=== PATIENT | female | born 1950 | race African-American/Black ===

== ENCOUNTER 2020-07-09 12:51 | Emergency (ER) | payer MEDICARE, SELFPAY ==
--- NOTE | ~2020-07-09 | XR_ITS ---
EXAMINATION: XR chest 2V DATE: 07/09/2020 13:30 INDICATION: Chest pain. Shortness of breath. TECHNIQUE: Frontal and lateral views of the chest were obtained. COMPARISON: None. FINDINGS: There is mild atelectasis at left lung base. No pleural effusion or pneumothorax. Cardiomeg ru is noted. IMPRESSION: 1. Mild atelectasis at left lung base. 2. Cardiomegaly. Reviewed, dictated and finalized at location A.
--- NOTE | ~2020-07-09 | NM_ITS ---
EXAMINATION: NM pulmonary perfusion EXAM DATE: 07/09/2020 16:50 INDICATION: Shortness of breath. TECHNIQUE: A perfusion lung scan was performed. The patient was injected with 5.1 mCi technetium 99m MAA and imaged. Modified PIOPED 2 criteria used for interpretation of perfusion without ventilation study (recent chest x-ray instead for comparison). Correlation is made to chest x-ray same date. FINDINGS: There is homogeneous perfusion throughout the lungs, without segmental defects on either si de. IMPRESSION: Normal perfusion scan. Reviewed, dictated and finalized at location A. IMPRESSION: Normal perfusion scan.
--- NOTE | 2020-07-09 12:52 | ECG_ITS ---
Measurements Intervals Bryant Rate: 77 P: 51 MO: 125 QRS: 49 QRSD: 93 T: 49 QT: 382 QTc: 433 Interpretive Statements SINUS RHYTHM BASELINE ARTIFACT- I, II, III, AVR, AVL, AVF, V1-V6 NORMAL ECG Electronically Signed On 07-09-2020 13:06:36 CDT by Clark Simpson D.O.
[2020-07-09 12:54] VITALS: BP 130/114; PULSE 83; RESP 15; TEMP 36.8; O2SAT 100
[2020-07-09 12:58] VITALS: PULSE 78
[2020-07-09] MEDS: ASPIRIN 81 MG CHEWABLE TABLET 324 MG PO (13:04)
--- NOTE | 2020-07-09 13:23 | PC.NURSE ---
IV attempt x3 unsuccessful at this time. Another RN will attempt to get IV and blood draw after patient returns from x-ray
--- NOTE | 2020-07-09 13:28 | ED.CHESTPAIN ---
HPI - Chest Pain General Chief Complaint: Chest Pain Stated Complaint: cp Time Seen by Provider: 07/09/20 12:53 Source: patient Mode of arrival: ambulatory Limitations: no limitations History of Present Illness HPI narrative: Patient is a 69-year-old female who presents with pleuritic chest pain that has been going on for weeks patient was admitted an outside hospital for this at evaluation was discharged patient notes that she saw primary care Thursday for this and that they have been evaluating her for the discomfort she gets when breathing and coughing. Patient denies acute illness such as fever chills URI symptoms diarrhea vomiting. Patient denies any current dyspnea. Patient notes that she has also had increasing swelling to the bilateral lower extremities and her doctor gave her a medicine for this which she has not filled yet. On arrival patient resting comfortably in the room in no distress and does not appear uncomfortable and currently does not have any pain Related Data Home Medications Medication Instructions Recorded Confirmed carvedilol 25 mg PO BID 07/09/20 07/09/20 Allergies Allergy/AdvReac Type Severity Reaction Status Date / Time No Known Allergies Allergy Unverified 11/01/19 15:33 Review of Systems Review of Systems: All systems reviewed & are unremarkable except as noted in HPI and below PMFSH Past Medical History Medical History (Updated 07/09/20 @ 13:30 by Pardeep Flynn PA-C) Hypertension Obesity Social History Social History (Updated 07/09/20 @ 13:30 by Pardeep Flynn PA-C) Smoking status: Never smoker Exam Narrative: Exam Narrative: GENERAL: Well-appearing, obese, and in no acute distress. HEAD: Normocephalic, atraumatic. EYES: PERRLA and EOMI. ENT: Nares clear, no rhinorrhea or epistaxis. Mucous membranes moist. Oropharynx without tonsillar hypertrophy exudate or other lesions. NECK: Supple. No adenopathy or masses. No carotid bruits or JVD CHEST: Clear to auscultation. No respiratory distress. No wheezes rales or rhonchi HEART: Regular rate and rhythm. No murmur heard. Normal peripheral pulses. ABDOMEN: Soft, nontender, nondistended EXTREMITIES: Normal range of motion. 4+ edema to the bilateral lower extremities SKIN: Warm, dry, no rash. NEURO: No focal deficits. Alert and oriented x3. PSYCH: Normal mood and affect. Course Vital Signs Vital signs: Vital Signs Temperature 98.3 F 07/09/20 12:54 Pulse Rate 83 07/09/20 12:54 Respiratory Rate 15 07/09/20 12:54 Blood Pressure 130/114 H 07/09/20 12:54 Pulse Oximetry 100 07/09/20 12:54 Temperature 98.3 F 07/09/20 12:54 Pulse Rate 78 07/09/20 12:58 Respiratory Rate 15 07/09/20 12:54 Blood Pressure 130/114 H 07/09/20 12:54 Pulse Oximetry 100 07/09/20 12:54 MDM - Chest Pain ECG Data EKG #1: ECG completion date: 07/09/20 ECG completion time: 13:00 EKG Interpretation: normal rate, sinus rhythm, non-specific ST changes, normal QRS and NL axis Discharge Plan Discharge Prescriptions: No Action carvedilol 25 mg Tablet 25 mg PO BID RF: 0
--- NOTE | 2020-07-09 13:32 | ED.CHESTPAIN ---
HPI - Chest Pain General Chief Complaint: Chest Pain Stated Complaint: cp Time Seen by Provider: 07/09/20 12:53 Source: patient Mode of arrival: ambulatory Limitations: no limitations History of Present Illness HPI narrative: Patient is a 69-year-old female who presents to emergency department for evaluation of pleuritic chest discomfort that has been present now for over a month has had a hospital admission in the last several weeks for this was discharged home followed up this Thursday with primary care who may have started the patient on a diuretic pill but she has not filled it. Patient notes she gets aching pain intermittently with breathing and coughing but denies other URI symptoms or acute illness and on arrival is denying any pain and resting comfortably in the room in no distress Related Data Home Medications Medication Instructions Recorded Confirmed carvedilol 25 mg PO BID 07/09/20 07/09/20 Allergies Allergy/AdvReac Type Severity Reaction Status Date / Time No Known Allergies Allergy Unverified 11/01/19 15:33 Review of Systems Review of Systems: All systems reviewed & are unremarkable except as noted in HPI and below PMFSH Past Medical History Medical History Hypertension Obesity Social History Social History Smoking status: Never smoker Exam Narrative: Exam Narrative: GENERAL: Well-appearing, obese, and in no acute distress. HEAD: Normocephalic, atraumatic. EYES: PERRLA and EOMI. ENT: Nares clear, no rhinorrhea or epistaxis. Mucous membranes moist. Oropharynx without tonsillar hypertrophy exudate or other lesions. NECK: Supple. No adenopathy or masses. No carotid bruits or JVD CHEST: Clear to auscultation. No respiratory distress. No wheezes rales or rhonchi HEART: Regular rate and rhythm. No murmur heard. Normal peripheral pulses. ABDOMEN: Soft, nontender, nondistended EXTREMITIES: Normal range of motion. 4+ edema to the bilateral lower extremities SKIN: Warm, dry, no rash. NEURO: No focal deficits. Alert and oriented x3. Cranial nerves II through XII grossly intact. Neurovascularly intact PSYCH: Normal mood and affect. Course Course Emergency Course: Patient in the room at this time in no distress aware of case findings treatment plan and diagnosis agreeing to follow-up with primary care patient was evaluated and is felt appropriate for outpatient reevaluation given her multiple complaints will be given Lasix one-time dose in the emergency department and will follow clinically with primary care patient is also aware discussion with primary care and the recommendation Consultations Consultation #1: Discussed case with primary care who will follow patient in clinic Date: 07/09/20 Time: 17:19 Vital Signs Vital signs: Vital Signs Temperature 98.3 F 07/09/20 12:54 Pulse Rate 83 07/09/20 12:54 Respiratory Rate 15 07/09/20 12:54 Blood Pressure 130/114 H 07/09/20 12:54 Pulse Oximetry 100 07/09/20 12:54 Temperature 98.3 F 07/09/20 12:54 Pulse Rate 75 07/09/20 16:07 Respiratory Rate 18 07/09/20 16:07 Blood Pressure 179/93 H 07/09/20 16:07 Pulse Oximetry 98 07/09/20 16:07 MDM - Chest Pain MDM Narrative Medical decision making narrative: Patient in the room at this time in no distress no high risk changes in the blood work or imaging felt appropriate for outpatient reevaluation patient will be given a diuretic in the emergency department prior to discharge per dependent edema felt appropriate for clinic follow-up. Patient will also be treated for constipation as requested by the patient Lab Data Result diagrams: 07/09/20 13:47 07/09/20 13:47 Labs: Lab Results 07/09/20 07/09/20 07/09/20 Range/Units 13:47 13:47 13:47 WBC 9.6 (4.5-10.0) K/mm3 RBC 3.42 L (4.2-5.4) M/mm3 Hgb 9.8 L (12.0-15.0) g/dL
[2020-07-09 13:56] LABS: Basophils Absolute Auto 0.1 K/mm3 (0.0-0.1); Eosinophils Absolute Auto 1.5 K/mm3 (0-0.3); Eosinophils Percent Auto 15.6 % (0-4.4); Hematocrit 32.4 % (37.0-47.0); Hemoglobin 9.8 g/dL (12.0-15.0); Immature Granulocyte Absolute 0.08 K/mm3 (0.00-0.031); Immature Granulocyte Percent A 0.8 % (0-0.5); Lymphocytes Absolute Auto 3.23 K/mm3 (0.9-3.2); Lymphocytes Percent Auto 33.6 % (18.3-44.2); Mean Corpuscular HGB Conc 30.2 g/dl (32-36); Mean Corpuscular Hemoglobin 28.7 pg (26-34); Mean Corpuscular Volume 94.7 fl (80-100); Mean Platelet Volume 11.3 fl (7.4-10.4); Monocytes Absolute Auto 1.1 K/mm3 (0.1-0.6); Monocytes Percent Auto 11.6 % (2.6-8.5); Neutrophils Absolute Auto 3.6 K/mm3 (1.3-6.7); Neutrophils Percent Auto 37.4 % (45.5-73.1); Nucleated Red Blood Cells Absolute Auto 0.1 K/mm3 (0.0-0.012); Platelet Count Result 370 k/mm3 (150-375); Red Blood Count 3.42 M/mm3 (4.2-5.4); Red Cell Distribution Width 19.2 % (11.5-14.5); White Blood Count 9.6 K/mm3 (4.5-10.0)
[2020-07-09 14:10] LABS: Anion Gap 3 mmol/L (8-16); Blood Urea Nitrogen 15 mg/dL (7-17); Calcium 8.7 mg/dL (8.4-10.2); Carbon Dioxide 29 mmol/L (22-30); Chloride 115 mmol/L (98-107); Estimated CRCL calculation 71 ml/min; Estimated Glomerular Filt Rate > 60; Glucose 112 mg/dL (65-105); Sodium 147 mmol/L (137-145)
[2020-07-09 14:16] LABS: NT Pro B Type Natriuretic Pept 973 PG/ML (5-100)
[2020-07-09 14:19] LABS: Hypochromasia 1+ (NORMAL); Platelet Estimate Adequate (Adequate)
[2020-07-09 14:20] LABS: Ovalocytes 1+ (NORMAL)
[2020-07-09 14:22] LABS: Troponin I < 0.012 ng/mL (0.000-0.034)
[2020-07-09 14:39] LABS: INR 1.1; Prothrombin Time 13.7 Seconds (11.1-14.7)
[2020-07-09 14:45] VITALS: BP 194/86; PULSE 71; RESP 14; O2SAT 100
[2020-07-09 16:07] VITALS: BP 179/93; PULSE 75; RESP 18; O2SAT 98
[2020-07-09 16:52] LABS: Troponin I < 0.012 ng/mL (0.000-0.034)
[2020-07-09 17:20] VITALS: BP 153/83; PULSE 74; RESP 17; O2SAT 100
[2020-07-09] MEDS: FUROSEMIDE INJ 40 MG/4 ML VIAL IV PUSH (17:20)
--- NOTE | 2020-07-09 17:38 | PC.NURSE ---
Patient's daughter called to give patient a ride [place] [phone]
[2020-07-09 17:45] VITALS: BP 133/68; PULSE 73; RESP 18; O2SAT 100
== END 2020-07-09 17:46 | disposition home or self-care (01) ==
PROVIDERS: Emergency Medicine Emergency Medical Services; Emergency Provider Emergency Medicine; PCP Internal Medicine
DX: R07.89 Other chest pain (principal); I10 Essential (primary) hypertension; E66.9 Obesity, unspecified; Z68.41 Body mass index [BMI] 40.0-44.9, adult; I51.7 Cardiomegaly; R91.8 Other nonspecific abnormal finding of lung field
CPT/HCPCS: 36415; 71046; 78580; 80048; 83880; 84484; 85025; 85380; 85610; 85730; 93005; 96374; 99284; A9270; A9540; J1940

== ENCOUNTER 2023-10-08 00:39 | Day surgery (SDC) | payer MEDICARE, SELFPAY ==
[2023-09-07 12:05] VITALS: BMI 43.4
--- NOTE | 2023-09-07 12:12 | PC.NURSE ---
Report to the Outpatient Waiting Room, entrance under the green pavilion located off [facility], at time __1000 on date _09/10/23__. Planned Procedure Time: __1200 . Time changes happen often and if your time is changed the preop area will call you the afternoon before. - You and your visitor will be asked to self-screen and do not enter if you have any COVID symptoms. - A mask is optional within the hospital at this time. Patients may have clear liquids (water, carbonated beverages, clear teas, apple juice) until 3 hours prior to surgery (0900 AM) with a maximum of 20 ounces. - No food from midnight until time of surgery - Infants may have breast milk until 4 hours before surgery, infant formula 6 hours prior to surgery. - Children will be allowed to drink immediately following surgery. If applicable, please bring a bottle or sippy cup to assist with drinking. Juice, water, soda, and popsicles are readily available. For infants on formula, please bring formula the day of surgery. Pacifiers are allowed. Take the following medications with a SIP of water the morning of surgery: __AMLODIPINE, CARVEDILOL DO NOT STOP ANY OF YOUR OTHER PRESCRIPTION MEDICATIONS PRIOR TO SURGERY ?EXCEPT THE FOLLOWING Medications to discontinue per physician N/A Date to take last dose Please no make-up, nail kazakh, hairspray, perfume, deodorant, or body powder the day of surgery. No jewelry (including any body piercings) or valuables the day of surgery, leave them at home. Please take a shower or bath the night before, or the morning of, surgery with an antibacterial soap. Wear comfortable, loose fitting clothing. Children are encouraged to wear pajamas. - Jewelry must be removed prior to entering the operating room. Rings and piercings that are not removed may be cut off. - The hospital will not accept responsibility for valuables. - Please leave all valuables, including medications, at home the day of surgery. If you are going home after surgery, a licensed driver lifter of sanitation truck must drive you home. - NO public transportation without another adult if you receive anesthesia. - We recommend that an adult stay with you for 24 hours following discharge. - We also recommend that you do not drive, make important decision, drink alcoholic beverages, or take any drugs that were not prescribed by your health care provider for at least 24 hours after your discharge time. For Pediatric surgeries, we recommend two adults accompany the child home. Follow any additional instructions given to you from your surgeon. If you or anyone in your household have experienced Covid symptoms in the past week, please notify your surgeon or the nurse liaison at the phone number below for possible testing. Telephone instructions given to ____PT and asked if any additional questions and then verbalized understanding. Patient advised to call surgeon office or pre surgery nurse liaison [phone] if any additional questions.
[2023-10-01 11:58] VITALS: BMI 43.4
--- NOTE | 2023-10-01 12:01 | PC.NURSE ---
Report to the Outpatient Waiting Room, entrance under the green pavilion located off [facility], at time __1000 on date __10/08/23 . Planned Procedure Time: ____1200____. Time changes happen often and if your time is changed the preop area will call you the afternoon before. - You and your visitor will be asked to self-screen and do not enter if you have any COVID symptoms. - A mask is optional within the hospital at this time. Patients may have clear liquids (water, carbonated beverages, clear teas, apple juice) until 3 hours prior to surgery (0900 AM) with a maximum of 20 ounces. - No food from midnight until time of surgery - Infants may have breast milk until 4 hours before surgery, formula 6 hours prior to surgery. - Children will be allowed to drink immediately following surgery. If applicable, please bring a bottle or sippy cup to assist with drinking. Juice, water, soda, and popsicles are readily available. For infants on formula, please bring formula the day of surgery. Pacifiers are allowed. Take the following medications with a SIP of water the morning of surgery: _AMLODIPINE, CARVEDILOL_ DO NOT STOP ANY OF YOUR OTHER PRESCRIPTION MEDICATIONS PRIOR TO SURGERY ?EXCEPT THE FOLLOWING Medications to discontinue per physician NONE Date to take last dose Please no make-up, nail icelandic, hairspray, perfume, deodorant, or body powder the day of surgery. No jewelry (including any body piercings) or valuables the day of surgery, leave them at home. Please take a shower or bath the night before, or the morning of, surgery with an antibacterial soap. Wear comfortable, loose fitting clothing. Children are encouraged to wear pajamas. - Jewelry must be removed prior to entering the operating room. Rings and piercings that are not removed may be cut off. - The hospital will not accept responsibility for valuables. - Please leave all valuables, including medications, at home the day of surgery. If you are going home after surgery, a licensed trencher driver must drive you home. - NO public transportation without another adult if you receive anesthesia. - We recommend that an adult stay with you for 24 hours following discharge. - We also recommend that you do not drive, make important decision, drink alcoholic beverages, or take any drugs that were not prescribed by your health care provider for at least 24 hours after your discharge time. For Pediatric surgeries, we recommend two adults accompany the child home. Follow any additional instructions given to you from your surgeon. If you or anyone in your household have experienced Covid symptoms in the past week, please notify your surgeon or the nurse liaison at the phone number below for possible testing. Telephone instructions given to ___PT and asked if any additional questions and then verbalized understanding. Patient advised to call surgeon office or pre surgery nurse liaison [phone] if any additional questions.
--- NOTE | 2023-10-08 07:34 | PM.IMHP ---
H&P: HPI History of Present Illness Date/Time: 10/08/23 07:34 Chief Complaint: postmenopausal bleeding Thickened endometrium on ultrasound Narrative: 72-year-old female who presents for hysteroscopy D&C for postmenopausal bleeding. Patient initially presented to the office after an episode of light postmenopausal bleeding. Pelvic ultrasound showed a thickened endometrium. Patient has had 2 prior D&Cs for the same complaint. Review of Systems Cardiovascular: Cardiovascular: Denies chest pain, Denies leg edema, Denies palpitations, Denies dyspnea and Denies dyspnea on exertion Respiratory: Respiratory: Denies cough, Denies dyspnea and Denies dyspnea on exertion Gastrointestinal: Gastrointestinal: Denies abdominal pain, Denies constipation, Denies diarrhea, Denies nausea and Denies vomiting Genitourinary: Genitourinary: Denies hematuria, Denies urinary frequency, Denies dysuria, Denies pelvic pain, Denies urinary incontinence and Denies vaginal discharge Neurologic: Reports system reviewed and no additional complaints, except as documented Psychiatric: Psychiatric: Reports no additional psychiatric complaints Endocrine: Endocrine: Denies palpitations PMFSH Past Medical History Medical History Cataract Colon cancer (~1994) High cholesterol History of hypertension Hypertension Incontinence had botox injections Obesity Osteoarthritis Surgical History Surgical History History of hysteroscopy (08/04/19) hscope D&C post menopausal bleeding Benign History of hysteroscopy (12/18/17) Hysteroscopy D&C with polypectomy/ PMB; endometrial polyp Family History Family History Mother Hypertension Diabetes mellitus Kidney disease Social History Social History Smoking status: Never smoker Second hand tobacco smoke exposure: No Alcohol intake: never Substance use: never Substance use type: does not use Living arrangements: with family Occupation/Education: retired Gender identity (if verbalized by the patient): Female Sexual Orientation (if Verbalized by the Patient): Straight or Heterosexual Spiritual care concerns: No Meds Home Medications and Allergies Home Medications Medication Instructions Recorded Confirmed Type carvedilol 25 mg tablet 25 mg PO BID 07/09/20 10/01/23 History amlodipine 5 mg tablet 5 mg PO DAILY 07/22/23 10/01/23 History atorvastatin 10 mg tablet 10 mg PO DAILY 07/22/23 10/01/23 History calcitriol 0.25 mcg capsule 0.25 mcg PO DAILY 07/22/23 10/01/23 History ergocalciferol (vitamin D2) 1,250 50,000 unit PO DAILY 07/22/23 10/01/23 History mcg (50,000 unit) capsule losartan 25 mg tablet 25 mg PO DAILY 07/22/23 10/01/23 History Allergies Allergy/AdvReac Type Severity Reaction Status Date / Time allopurinol Allergy Mild Hives Verified 10/01/23 12:00 Exam Const: General: no acute distress Eyes: EOM: EOMs intact bilaterally Neck: Neck: supple Thyroid: thyroid normal Chest: Breast/axilla inspection: normal inspection of the breasts Breast/axilla palpation: normal palpation of the breasts, normal palpation of the axillae and no axillary lymphadenopathy Resp: Effort & Inspection: normal respiratory effort Auscultation: clear to auscultation bilaterally Cardio: Rate: regular rate Rhythm: regular rhythm GI: Inspection: non-distended GI Palp: Yes Soft to palpation, No Tenderness to palpation present (GI) and No Guarding due to palpation present (GI) Auscultation: normal bowel sounds : General: No bladder normal to palpation External Female Exam: normal external appearance Speculum Exam - Vagina: normal vaginal discharge and No vaginal bleeding Speculum Exam - Cervix: nontender Bimanual exam- vagina & uterus: No bladder normal to palpati
--- NOTE | 2023-10-08 07:36 | WPDHPUPDATE1 ---
History and Physical Update Update Date/Time: 10/08/23 07:36 History and Physical has been reviewed, including an updated exam of the patient. There are NO changes in the patient's condition. Risks, benefits, and alternatives have been discussed and questions answered. Patient agrees to proceed with procedure.
[2023-10-08 10:23] VITALS: BP 177/84; PULSE 70; RESP 20; TEMP 36.6; O2SAT 100
[2023-10-08] MEDS: ACETAMINOPHEN 500 MG TABLET 1000 MG PO (10:24)
[2023-10-08] MEDS: LACTATED RINGERS 1,000 ML 30 ML IV CONT (10:40)
[2023-10-08 10:49] LABS: Hematocrit 41.7 % (37.0-47.0); Hemoglobin 13.1 g/dL (12.0-15.0)
--- NOTE | 2023-10-08 11:36 | WPDANESEPPF ---
Anes - Initial Pre Proc Eval Procedure: Operation Date: 10/08/23 12:00 Proposed Procedures p Hysteroscopy Dilation and Curettage - Alfred Poe MD Date/Time: 10/08/23 11:36 Surgeon: Alfred Poe MD Pre Op Diagnosis: Post Menopausal Bleeding Patient Data Age: 72 Gender: F Height: 1.6 m Weight: 111.1 kg Last Vital Signs Temp 36.6 C 10/08/23 10:23 Pulse 70 10/08/23 10:23 Resp 20 10/08/23 10:23 BP 177/84 H 10/08/23 10:23 Pulse Ox 100 10/08/23 10:23 O2 Del Method Room Air 10/08/23 10:23 Allergies Allergy/AdvReac Type Severity Reaction Status Date / Time allopurinol Allergy Mild Hives Verified 10/08/23 10:20 Home Medications Medication Instructions Recorded Confirmed Type carvedilol 25 mg tablet 25 mg PO BID 07/09/20 10/08/23 History amlodipine 5 mg tablet 5 mg PO DAILY 07/22/23 10/08/23 History atorvastatin 10 mg tablet 10 mg PO DAILY 07/22/23 10/08/23 History calcitriol 0.25 mcg capsule 0.25 mcg PO DAILY 07/22/23 10/08/23 History ergocalciferol (vitamin D2) 1,250 50,000 unit PO DAILY 07/22/23 10/01/23 History mcg (50,000 unit) capsule losartan 25 mg tablet 25 mg PO DAILY 07/22/23 10/08/23 History Laboratory Tests 10/08/23 10:34 Hgb 13.1 D g/dL (12.0-15.0) Hct 41.7 % (37.0-47.0) Patient hx anesthesia problems: none Family hx anesthesia problems: none Results Review: All pre-operative results and documents have been reviewed as part of the pre-operative evaluation. [facility] Past Medical History Medical History Cataract Colon cancer (~1994) High cholesterol History of hypertension Hypertension Incontinence had botox injections Obesity Osteoarthritis Surgical History Surgical History History of hysteroscopy (08/04/19) hscope D&C post menopausal bleeding Benign History of hysteroscopy (12/18/17) Hysteroscopy D&C with polypectomy/ PMB; endometrial polyp Family History Family History Mother Hypertension Diabetes mellitus Kidney disease Social History Social History Smoking status: Never smoker Second hand tobacco smoke exposure: No Alcohol intake: never Substance use: never Substance use type: does not use Living arrangements: with family Occupation/Education: retired Gender identity (if verbalized by the patient): Female Sexual Orientation (if Verbalized by the Patient): Straight or Heterosexual Spiritual care concerns: No Anes - Eval Final PreProcedure Day of Procedure 10/08/23 11:36 Patient weight: morbidly obese Heart: regular rate and rhythm Lungs: clear to auscultation Airway: Mallampati scale class II Neurological: alert and oriented Last oral intake: >/= 8 hours ASA classification: III Emergent: no Anesthetic plan: proceed Anesthesia type and monitoring: general GIVS and LMA and standard monitoring Results Review: All pre-operative results and documents have been reviewed as part of the pre-operative evaluation. Informed Consent: The patient's anesthetic plan and its attendant risks and benefits were discussed with the patient/family/POA. Questions were solicited and answers provided to the satisfaction of the patient/family/POA.
--- NOTE | 2023-10-08 12:36 | W.PM.PROC2 ---
Procedure Note - Detailed Date of Procedure 10/08/23 Pre-op Diagnosis Post Menopausal Bleeding Post-op Diagnosis Same Procedure Performed hysteroscopy dilation & curettage Surgeon Alfred Poe MD Anesthesia General Indications postmenopausal bleeding thickened endometrium on ultrasound Findings complete survey of endometrial cavity unsuccessful due to depth of vaginal vault and limit of instrument reach. Endometrial lining appeared globally thickened. Tubal ostia not visualized. Description of Procedure Kely Mayer presents for the above procedure for SMASH PIECER. She was counseled as to the indications, risks, benefits, and alternatives to surgery, with the risks including bleeding, infection, damage to surrounding organs, VTE, and complications of anesthesia. Her verbal and written consent was obtained. PROCEDURE: The patient was taken to the OR and general anesthesia induced. She was prepped and draped in Manuelito stirrups with support of the back and bilateral lower extremities. I/O catheterization performed of the bladder. A bi-valve speculum was placed but the cervix was unable to be visualized. A long matthew speculum was then used. The cervix was able to be visualize but the speculum was at full reach and retraction. A single tooth tenaculum was placed on the anterior lip of the cervix. Hysteroscopy, using a normal saline medium, was performed and showed the above findings. Hysteroscope was advanced without full visualization of the endometrial cavity. The limits of the instruments reach were being reached. In fear of uterine perforation, the instruments were not advanced further. Operative hysteroscopic blade was used to obtain tissue under direct visualization. Sharp uterine curettage was then performed with care taken not to advance the curette beyond 6 cm as the uterine depth was estimated to be 7.5 cm. Scant amount of tissue was collected on Telfa. The tenaculum was removed and hemostasis was observed. The patient tolerated the procedure well. Sponge, lap, and needle counts were correct. The patient had SCD's on throughout the case for VTE prophylaxis. The patient was taken to the recovery room in stable condition. Estimated Blood Loss 15 Urine Output 150 Drains No Packing No Pathology Yes (endometrial curettings ) Complications No immediate complications Condition Stable Disposition PACU [facility] Billing Surgery - Charge Forward: Surgery Billing
[2023-10-08 12:40] VITALS: BP 122/57; PULSE 62; RESP 16; O2SAT 100
[2023-10-08 13:02] VITALS: BP 141/62; PULSE 60; RESP 17; O2SAT 98
[2023-10-08 13:20] VITALS: BP 155/67; PULSE 58; RESP 17; O2SAT 100
[2023-10-08 13:49] VITALS: BP 159/65; PULSE 59; RESP 17; O2SAT 100
--- NOTE | 2023-10-08 14:00 | SUR.PHASEII ---
1350- Pt. 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
[2023-10-08 14:08] VITALS: BP 158/64; PULSE 60; RESP 16; O2SAT 98
== END 2023-10-08 14:09 | disposition home or self-care (01) ==
PROVIDERS: PCP Internal Medicine; Visit Provider Student in an Organized Health Care Education/Training Program
PROC: 0U5B8ZZ Destruction of Endometrium, Via Natural or Artificial Opening Endoscopic (ICD-10-PCS; CPT 58563; principal; 2023-10-08 12:00)
DX: N95.0 Postmenopausal bleeding (principal); I10 Essential (primary) hypertension; E78.00 Pure hypercholesterolemia, unspecified; E66.01 Morbid (severe) obesity due to excess calories; Z68.41 Body mass index [BMI] 40.0-44.9, adult; Z85.038 Personal history of other malignant neoplasm of large intestine
CPT/HCPCS: 58558; 36415; 85014; 85018; 88305; A9270; J2704; J3010; J7120

== ENCOUNTER 2025-06-20 00:22 | Day surgery (SDC) | payer MEDICARE, SELFPAY ==
[2025-06-13 14:09] VITALS: BMI 40.8
--- NOTE | 2025-06-13 14:37 | PC.NURSE ---
Spoke with patient and daughter regarding medication ELIQUIS. PATIENT verbalizes understanding that the last dose is to be taken on 06/16/25 and the Endoscopist will instruct them when to restart after the procedure.
--- NOTE | 2025-06-13 14:39 | PC.NURSE ---
Spoke with patient and daughter. States she knows what to do for prep but does not know what she did with instructions. I explained she needs the instructions to do the specific prep to be cleaned out for the procedure. The daughter states she will come up and get the instructions so they will be left at the registration desk for her today.
--- OUTSIDE RECORDS SUMMARY | 2025-06-20 00:24 | XMS_ITS | Clinical Summary ---
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 Phone Unavailable Primary Care Provider Unavailabl e Social History Tobacco Use Types Packs/Day Years Used Date Smoking Tobacco: Never Assessed Comments Unknown Sex and Gender Information Value Date Recorded Sex Assigned at Not on file Legal Sex Female 8:05 PM CDT Gender Identity Not on file Sexual Orientation Not on file Plan of Treatment Health Maintenance Due Date Last Done Comments Hepatitis C Virus (HCV) Screening 1950 TdaP Immunization 1950 Cologuard 12/29/1996 Colonoscopy 12/29/1996 Colorectal Cancer Screening 12/29/1996 Immunochemical Fecal Occult Blood 12/29/1996 Zoster Immunization (1 of 2) 12/29/2001 Pneumococcal Immunization (5 0+ years) (2 of 2 - PCV20 or PCV21) 04/01/2020 04/01/2019 Influenza Immunization (#1) 2025 SARS-COV-2 Immunization ( season) 2025 Respiratory Syncytial Virus (RSV) Immunization (Adult) (1 - 1-dose 75+ series) 12/29/2026 Hepatitis B Immunization Aged Out No longer eligible based on patient's age to complete this topic Human Papillomavirus (HPV) Immunization Aged Out No longer eligible b ased on patient's age to complete this topic Meningococcal Immunization (ACWY) Aged Out No longer eligible based on patient's age to complete this topic Rotavirus Immunization Aged Out No lo nger eligible based on patient's age to complete this topic
--- OUTSIDE RECORDS SUMMARY | 2025-06-20 00:24 | XMS_ITS | Patient Health Record ---
Author Organization [facility] Address [address] [place] [address] Reason For Referral No Information Medications Medication SIG (Take, Route, Frequency, Duration) Notes Start Date End Date Status Losartan Potassium 25 MG 1 tablet Orally Once a day; Duration: 90 day(s) Active Social History Sex Assigned At : Social History Observation Description Sex Assigned At Female Problems Problem Type SNOMED Code ICD Code Onset Dates Problem Status W/U Status Risk Notes Problem Obesity (904634618) Obesity, unspecified (E66.9) Active confirmed Problem Essential hypertension (84460729) Essential (primary) hypertension (I10) Active confirmed Problem Chronic kidney disease stage 2 (653601441) Chronic kidney disease, stage 2 (mild) (N18.2) Active confirmed Problem Retention of urine (780213341) Retention of urine, unspecified (R33.9) Active confirmed Problem Edema (66275082) Edema, unspecified (R60.9) Active confirmed Plan Of Treatment No Information
--- OUTSIDE RECORDS SUMMARY | 2025-06-20 00:24 | XMS_ITS | Patient Health Record ---
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 Phone UNKNOWN, UNKNOWN Primary Care Provider Duc Piña Unavailable [phone] Allergies No Known Allergies Reason For Referral No Information Medications Medication SIG (Take, Route, Frequency, Duration) Notes Start Date End Date Status amLODIPine Besylate Active Atorvastatin Calcium Active Potassium Chloride Henny ER Active Ketoconazole 2 % Cream 1 application to affected area Externally Once a day; Duration: 6 weeks 08/12/2022 Active Carvedilol Active Social History Tobacco Use: Social History Observation Description Date Details (start date - stop date) Never Smoker NA - NA Social History Tobacco Use: Social Info Question Answer Notes Tobacco Use/Smoking Are you a nonsmoker Additional Details Category Social Info Options Details Miscellaneous: Occupation: Retired Drugs/Alcohol: Do you smoke marijuana? De nies Alcohol use: Denies current a lcohol use Problems Problem Type SNOMED Code ICD Code Onset Dates Problem Status W/U Status Risk Notes Problem Venous insufficiency of leg (disorder) (754984926) Venous insufficiency (I87.2) Active confirmed Problem Generalized atherosclerosis (54054114) Atherosclerosis, generalized (I70.91) Active confirmed Plan Of Treatment No Information Insurance Providers Payer Name Payer Address Payer Phone Subscriber Number Group Number Insured Name Patient Relationship to Insured Coverage Start Date Coverage End Date [employer] Medicare Complete [address] [address] [place] [address] [id number] Samantha Mayer Self - patient is the insured Medical (General) History Medical History History ICD Code HTN, hyperlipidemia Surgical History Surgery Date(Month/Year)
[2025-06-20 09:57] VITALS: BP 149/73; PULSE 56; RESP 20; TEMP 36; O2SAT 100; BMI 41.3
[2025-06-20] MEDS: LACTATED RINGERS 1,000 ML 150 ML IV CONT (10:10)
--- NOTE | 2025-06-20 10:15 | WPDANESEPPF ---
Anes - Initial Pre Proc Eval Procedure: Operation Date: 06/20/25 10:30 Proposed Procedures p Screening Colonoscopy - Claudio Goodwin MD Date/Time: 06/20/25 10:15 Surgeon: Claudio Goodwin MD Pre Op Diagnosis: Screening/personal hx colon polyps and colons ca Patient Data Age: 74 Gender: F Height: 1.6 m Weight: 105.7 kg Last Vital Signs Temp 96.8 F L 06/20/25 09:57 Pulse 56 L 06/20/25 09:57 Resp 20 06/20/25 09:57 BP 149/73 H 06/20/25 09:57 Pulse Ox 100 06/20/25 09:57 O2 Del Method Room Air 06/20/25 09:57 Allergies Allergy/AdvReac Type Severity Reaction Status Date / Time allopurinol Allergy Mild Hives Verified 06/20/25 09:55 codeine AdvReac Intermediate gastric Verified 06/20/25 09:55 upset Home Medications ?Medication ?Instructions ?Recorded ?Confirmed ?Type carvedilol 25 mg tablet 25 mg PO BID 07/09/20 06/20/25 History amlodipine 5 mg tablet 5 mg PO DAILY 07/22/23 06/20/25 History atorvastatin 10 mg tablet 10 mg PO DAILY 07/22/23 06/20/25 History calcitriol 0.25 mcg capsule 0.25 mcg PO DAILY 07/22/23 06/20/25 History losartan 25 mg tablet 25 mg PO DAILY 07/22/23 06/20/25 History acetaminophen 500 mg tablet 500 mg PO Q6H PRN pain #30 tabs 10/08/23 06/13/25 Rx ibuprofen 600 mg tablet 600 mg PO Q6H PRN pain #30 tabs 10/08/23 06/13/25 Rx apixaban 5 mg tablet (Eliquis) 5 mg PO Q12H 06/13/25 06/20/25 History methimazole 5 mg tablet 5 mg PO 06/13/25 History Patient hx anesthesia problems: none Family hx anesthesia problems: none Results Review: All pre-operative results and documents have been reviewed as part of the pre-operative evaluation. [facility] Past Medical History Medical History Osteoarthritis Incontinence had botox injections History of hypertension High cholesterol Cataract Colon cancer (~1994) Hypertension Obesity Surgical History Surgical History History of hysteroscopy (12/18/17) Hysteroscopy D&C with polypectomy/ PMB; endometrial polyp History of hysteroscopy (08/04/19) hscope D&C post menopausal bleeding Benign Family History Family History Mother Hypertension Diabetes mellitus Kidney disease Cerebrovascular accident Social History Social History Smoking status: Never smoker Second hand tobacco smoke exposure: No Alcohol intake: never Substance use: never Substance use type: does not use Current Housing: Decline to Answer Concerned About Future Housing: Decline to Answer Difficulty Paying Gas/Electric Bills: Decline to Answer Difficulty Paying for Meds: Decline to Answer Currently Unemployed: Decline to Answer Education: Decline to Answer Difficulty w/ Childcare or Family Care: Decline to Answer Living arrangements: with family Occupation/Education: retired Gender identity (if verbalized by the patient): Female Sexual Orientation (if Verbalized by the Patient): Straight or Heterosexual Spiritual care concerns: No Anes - Eval Final PreProcedure Day of Procedure 06/20/25 10:15 Patient weight: morbidly obese Lungs: normal air movement Airway: Mallampati scale class III Neurological: alert and oriented Last oral intake: >/= 8 hours ASA classification: III Emergent: no Anesthetic plan: proceed Anesthesia type and monitoring: general GIVS and standard monitoring Results Review: All pre-operative results and documents have been reviewed as part of the pre-operative evaluation. HTN, hyperlipidemia, BRANDAN but has not started CPAP yet, hx of atrial fib and AC on hold. Informed Consent: The patient's anesthetic plan and its attendant risks and benefits were discussed with the patient/family/POA. Questions were solicited and answers provided to the satisfaction of the patient/family/POA.
--- NOTE | 2025-06-20 10:36 | PM.HPGS ---
History of Present Illness History of Present Illness Consent: Risks, benefits, and alternatives have been discussed and questions answered. Patient agrees to proceed with procedure. Chief complaint: Screening/personal hx colon polyps Narrative: Kely Mayer is a 74 year old female with history of colon polyps Review of Systems Review of Systems: All systems reviewed & are unremarkable except as noted in HPI and below PMFSH Past Medical History Medical History (Updated 06/20/25 @ 10:38 by Claudio Goodwin MD) Colon polyp Osteoarthritis Incontinence had botox injections History of hypertension High cholesterol Cataract Colon cancer (~1994) Hypertension Obesity Surgical History Surgical History History of hysteroscopy (12/18/17) Hysteroscopy D&C with polypectomy/ PMB; endometrial polyp History of hysteroscopy (08/04/19) hscope D&C post menopausal bleeding Benign Family History Family History Mother Hypertension Diabetes mellitus Kidney disease Cerebrovascular accident Social History Social History Smoking status: Never smoker Second hand tobacco smoke exposure: No Alcohol intake: never Substance use: never Substance use type: does not use Current Housing: Decline to Answer Concerned About Future Housing: Decline to Answer Difficulty Paying Gas/Electric Bills: Decline to Answer Difficulty Paying for Meds: Decline to Answer Currently Unemployed: Decline to Answer Education: Decline to Answer Difficulty w/ Childcare or Family Care: Decline to Answer Living arrangements: with family Occupation/Education: retired Gender identity (if verbalized by the patient): Female Sexual Orientation (if Verbalized by the Patient): Straight or Heterosexual Spiritual care concerns: No Meds Home Medications and Allergies Home Medications ?Medication ?Instructions ?Recorded ?Confirmed ?Type carvedilol 25 mg tablet 25 mg PO BID 07/09/20 06/20/25 History amlodipine 5 mg tablet 5 mg PO DAILY 07/22/23 06/20/25 History atorvastatin 10 mg tablet 10 mg PO DAILY 07/22/23 06/20/25 History calcitriol 0.25 mcg capsule 0.25 mcg PO DAILY 07/22/23 06/20/25 History losartan 25 mg tablet 25 mg PO DAILY 07/22/23 06/20/25 History acetaminophen 500 mg tablet 500 mg PO Q6H PRN pain #30 tabs 10/08/23 06/13/25 Rx ibuprofen 600 mg tablet 600 mg PO Q6H PRN pain #30 tabs 10/08/23 06/13/25 Rx apixaban 5 mg tablet (Eliquis) 5 mg PO Q12H 06/13/25 06/20/25 History methimazole 5 mg tablet 5 mg PO 06/13/25 History Allergies Allergy/AdvReac Type Severity Reaction Status Date / Time allopurinol Allergy Mild Hives Verified 06/20/25 09:55 codeine AdvReac Intermediate gastric Verified 06/20/25 09:55 upset Vital Signs Vital Signs - 24 hr 06/20/25 09:57 Temperature 96.8 F L Pulse Rate 56 L Respiratory Rate 20 Blood Pressure 149/73 H Pulse Oximetry 100 Oxygen Delivery Room Air Exam Const: General: comfortable and no acute distress HENMT: Face/Nose/Sinus: Normal nares present Eyes: General: appearance normal, both eyes and all related structures Resp: Auscultation: clear to auscultation bilaterally Cardio: Rate: regular rate Rhythm: regular rhythm GI: Inspection: non-distended GI Palp: Yes Soft to palpation Skin: General skin exam: normal color Extrem: General: normal to inspection Psych: Mental Status: mental status grossly normal Assessment and Plan Assessment and plan (1) Colon polyp: Code(s): K63.5 - Polyp of colon Status: Acute Assessment and Plan: colonoscopy
--- NOTE | 2025-06-20 10:57 | S_PTH ---
PATIENT: Kely Mayer LOC: [facility]#:[id number] AGE/SX: 74/F ROOM: RE06/20/[address]: Claudio Goodwin MD : 1950 BED: DIS: 06/20/2025 SPEC #: [id number] RECD: 06/20/25 11:19 STATUS: ROS REaLuren #: [id number] JEROME: 06/20/25 10:[address]: Claudio Goodwin DEPT: [facility] [place] Surgical RECD BY: Sherice Garcia ENTERED: 06/20/25 11:20 SP TYPE: Surgical OTHR DR: Jose Antonio ArandaMD Tissues: A - Colon Polypectomy B - Colon Polypectomy C - Colon Polypectomy Procedures: Hematoxylin and Eosin Stain Gross and Microscopic Level 4
[2025-06-20 10:59] VITALS: BP 87/46; PULSE 85; RESP 22; O2SAT 98
[2025-06-20 11:09] VITALS: BP 109/60; PULSE 92; RESP 22; O2SAT 100
[2025-06-20 11:19] VITALS: BP 126/68; PULSE 76; RESP 20; O2SAT 100
--- NOTE | 2025-06-20 11:34 | SUR.PHASEII ---
Dr. Carlisle in another procedure at time of discharge. The patient did not wish to wait to speak to MD before discharging.
== END 2025-06-20 11:34 | disposition home or self-care (01) ==
PROVIDERS: PCP Internal Medicine; Referring Provider Internal Medicine; Visit Provider Internal Medicine Gastroenterology
PROC: 0DJD8ZZ Inspection of Lower Intestinal Tract, Via Natural or Artificial Opening Endoscopic (ICD-10-PCS; CPT 45378; principal; 2025-06-20 10:30)
DX: Z12.11 Encounter for screening for malignant neoplasm of colon (principal); D12.0 Benign neoplasm of cecum; D12.2 Benign neoplasm of ascending colon; D12.3 Benign neoplasm of transverse colon; K64.8 Other hemorrhoids; I10 Essential (primary) hypertension; E78.00 Pure hypercholesterolemia, unspecified; G47.33 Obstructive sleep apnea (adult) (pediatric); R32 Unspecified urinary incontinence; I48.91 Unspecified atrial fibrillation; M19.90 Unspecified osteoarthritis, unspecified site; E66.01 Morbid (severe) obesity due to excess calories; Z68.41 Body mass index [BMI] 40.0-44.9, adult; Z79.1 Long term (current) use of non-steroidal anti-inflammatories (NSAID); Z79.01 Long term (current) use of anticoagulants; Z98.890 Other specified postprocedural states; Z98.0 Intestinal bypass and anastomosis status; Z90.49 Acquired absence of other specified parts of digestive tract; Z85.038 Personal history of other malignant neoplasm of large intestine
CPT/HCPCS: 45385; 88305; J2003; J2704; J7120